=== PATIENT | female | born 1970 | race Hispanic/Latino ===

== ENCOUNTER 2022-08-22 15:23 | Emergency (ER) | payer OTHER, MEDICAID, SELFPAY ==
[2022-08-22 15:36] VITALS: BP 147/86; PULSE 94; RESP 16; TEMP 36.9; O2SAT 100; BMI 27.2
[2022-08-22 16:22] LABS: Influenza A - CEPHEID Flu A POSITIVE (NEGATIVE); Influenza B - CEPHEID Flu B NEGATIVE (NEGATIVE); Respiratory Syncytial Virus Negative (Negative)
[2022-08-22 16:24] LABS: COVID-19 CEPHEID 4-PLEX PCR Negative (Negative)
--- NOTE | 2022-08-22 16:58 | DI.RAD.S_ITS ---
PROCEDURE: XR CHEST 1V INDICATIONS: shortness of breath, flu+ TECHNIQUE: One view of the chest was acquired. COMPARISON: None. FINDINGS: Surgical changes and devices: None. Lungs and pleura: Trace can be seen involving both lower lungs, left worse than right. No pleural effusions or pneumothorax. Mediastinum: Mediastinal contours appear normal. Heart size is normal. Bones and chest wall: No suspicious bony lesions. Overlying soft tissues appear unremarkable. IMPRESSION: These imaging findings are compatible with the given clinical history a viral infection. No superimposed consolidative infiltrates are seen. Dictated by: Scot Shrestha M.D. on 08/22/2022 at 16:39 Approved by: Scot Shrestha M.D. on 08/22/2022 at 16:39
--- NOTE | 2022-08-22 17:05 | ED_ITS ---
HPI - URI/Sore Throat <YELITZA Robledo - Last Filed: 08/22/22 20:14> General Chief Complaint: Upper Respiratory Symptoms Stated Complaint: Sore Throat/Fever/Aches/Headache Time Seen by Provider: 08/22/22 16:22 Mode of arrival: Family Vehicle History of Present Illness HPI Narrative: This is a 51-year-old female presents to the emergency department complaining of epigastric pain, sore throat, fever, body aches and headache. She is had the symptoms for the last 5 days, has been exposed to influenza A. Has not had vomiting but endorses having diarrhea. She complains of shortness of breath, fatigue, frequent cough. Related Data Previous Rx's Medication Instructions Recorded albuterol sulfate 90 mcg/actuation 1 puff inhalation QID PRN 08/22/22 aerosol inhaler shortness of breath or wheezing #8.5 grams amoxicillin 500 mg capsule 1,000 mg PO TID 5 days #28 caps 08/22/22 azithromycin 250 mg tablet 250 mg PO DAILY 4 days #4 tabs 08/22/22 inhalational spacing device (Space #1 ea 08/22/22 Chamber) omeprazole 10 mg capsule,delayed 10 mg PO DAILY #30 caps 08/22/22 release Allergies Allergy/AdvReac Type Severity Reaction Status Date / Time No Known Drug Allergies Allergy Verified 08/22/22 15:38 Review of Systems <YELITZA Robledo - Last Filed: 08/22/22 20:14> Review of Systems Narrative: Review of systems is negative for acute abnormalities unless otherwise noted in HPI Patient History <YELITZA Robledo - Last Filed: 08/22/22 20:14> Social History Smoking Status: Former smoker Smoking Status: Former smoker Substance Use Type: does not use Exam <YELITZA Robledo - Last Filed: 08/22/22 20:14> Narrative Exam Narrative: Reviewed vitals signs and nursing notes. General: cooperative, uncomfortable, in no acute distress, well groomed HEENT: symmetrical facial expressions, moist mucous membranes, congestion pres ent, without sinus tenderness, Cardiovascular: regular rate and rhythm, no peripheral edema, warm extremities Respiratory: normal effort, able to speak in complete sentences, without wheezing, stridor, or abnormal breath sounds. No retractions or tachypnea. Diminished breath sounds bilateral bases GI: abdomen soft, nontender to palpation, nondistended, without masses, rebound tenderness or exquisite tenderness with exam. MSK: moves all extremities, neurovascularly intact, no weakness, normal tone Skin: brisk capillary refill, without pallor or erythema Neuro: normal speech and cognition, A&O x3, ambulatory, clear speech Psych: mental status is grossly normal, congruent mood, normal affect, pleasant and cooperative Initial Vital Signs Initial Vital Signs: Vital Signs Temperature 98.4 F 08/22/22 15:36 Pulse Rate 94 H 08/22/22 15:36 Respiratory Rate 16 08/22/22 15:36 Blood Pressure 147/86 H 08/22/22 15:36 Pulse Oximetry 100 08/22/22 15:36 Oxygen Delivery Method 08/22/22 15:36 <Kenny Mcgovern MD - Last Filed: 08/23/22 07:04> Initial Vital Signs Initial Vital Signs: Vital Signs Temperature 98.4 F 08/22/22 15:36 Pulse Rate 94 H 08/22/22 15:36 Respiratory Rate 16 08/22/22 15:36 Blood Pressure 147/86 H 08/22/22 15:36 Pulse Oximetry 100 08/22/22 15:36 Oxygen Delivery Method 08/22/22 15:36 Course <YELITZA Robledo - Last Filed: 08/22/22 20:14> Orders Ordered: Discontinued Medications Acetaminophen (Acetaminophen 325 Mg Tablet) 650 mg PO NOW ONE Stop: 08/22/22 17:00 Last Admin: 08/22/22 17:17 Dose: 650 mg Documented By: ANDREY Amoxicillin (Amoxicillin 250 Mg Capsule) 1,000 mg PO NOW ONE Stop: 08/22/22 17:14 Last Admin: 08/22/22 17:17 Dose: 1,000 mg Documented By: BT Azithromycin (Azithromycin 250 Mg Tablet) 500 mg PO NOW ONE Stop: 08/22/22 17:14 Last Admin: 08/22/22 17:17 Dose: 500 mg Documented By: ANDREY Benzonatate (Benzonatate 100 Mg Capsule) 100 mg PO NOW ONE Stop: 08/22/22 17:14 Last Admin: 08/22/22 17:17 Dose: 100 mg Documented By: BT Dexamethasone (Dexamethasone 10 Mg/Ml Vial) 10 mg PO NOW ONE Stop: 08/22/22 17:00 Last Admin: 08/22/22 17:18 Dose: 10 mg Documented By: BT Guaifenesin (Guaifenesin Er 600 Mg Tab) 600 mg PO NOW ONE Stop: 08/22/22 17:14 Last Admin: 08/22/22 17:19 Dose: Not Given Documented By: BT Ketorolac Tromethamine (Ketorolac 30 Mg/Ml Vial) 15 mg IM NOW ONE Stop: 08/22/22 17:00 Last Admin: 08/22/22 17:18 Dose: 15 mg Documented By: BT Pantoprazole Sodium (Pantoprazole Dr 20 Mg Tablet) 20 mg PO NOW ONE Stop: 08/22/22 17:00 Last Admin: 08/22/22 17:18 Dose: 20 mg Documented By: BT Vital Signs Vital signs: Vital Signs - 8 hr 08/22/22 15:36 08/22/22 17:39 Temperature 98.4 F Pulse Rate 94 H 79 Respiratory Rate 16 18 Blood Pressure 147/86 H 143/84 H Pulse Oximetry 100 98 Oxygen Delivery Method Room Air Room Air <Kenny Mcgovern MD - Last Filed: 08/23/22 07:04> Orders Ordered: Discontinued Medications Acetaminophen (Acetaminophen 325 Mg Tablet) 650 mg PO NOW ONE Stop: 08/22/22 17:00 Last Admin: 08/22/22 17:17 Dose: 650 mg Documented By: ANDREY Amoxicillin (Amoxicillin 250 Mg Capsule) 1,000 mg PO NOW ONE Stop: 08/22/22 17:14 Last Admin: 08/22/22 17:17 Dose: 1,000 mg Documented By: BT Azithromycin (Azithromycin 250 Mg Tablet) 500 mg PO NOW ONE Stop: 08/22/22 17:14 Last Admin: 08/22/22 17:17 Dose: 500 mg Documented By: BT Benzonatate (Benzonatate 100 Mg Capsule) 100 mg PO NOW ONE Stop: 08/22/22 17:14 Last Admin: 08/22/22 17:17 Dose: 100 mg Documented By: ANDREY Dexamethasone (Dexamethasone 10 Mg/Ml Vial) 10 mg PO NOW ONE Stop: 08/22/22 17:00 Last Admin: 08/22/22 17:18 Dose: 10 mg Documented By: BT Guaifenesin (Guaifenesin Er 600 Mg Tab) 600 mg PO NOW ONE Stop: 08/22/22 17:14 Last Admin: 08/22/22 17:19 Dose: Not Given Documented By: BT Ketorolac Tromethamine (Ketorolac 30 Mg/Ml Vial) 15 mg IM NOW ONE Stop: 08/22/22 17:00 Last Admin: 08/22/22 17:18 Dose: 15 mg Documented By: BT Pantoprazole Sodium (Pantoprazole Dr 20 Mg Tablet) 20 mg PO NOW ONE Stop: 08/22/22 17:00 Last Admin: 08/22/22 17:18 Dose: 20 mg Documented By: BT Vital Signs Vital signs: Vital Signs - 8 hr 08/22/22 15:36 08/22/22 17:39 Temperature 98.4 F Pulse Rate 94 H 79 Respiratory Rate 16 18 Blood Pressure 147/86 H 143/84 H Pulse Oximetry 100 98 Oxygen Delivery Method Room Air Room Air MDM - URI/Sore Throat <Nataly Caceres [facility] - Last Filed: 08/22/22 20:14> Lab Data Labs: Lab Results 08/22/22 Range/Units 15:43 SARS-CoV-2 (PCR) Negative (Negative) Influenza A (RT-PCR) Flu a positive H (NEGATIVE) Influenza B (RT-PCR) Flu b negative (NEGATIVE) RSV (PCR) Negative (Negative) Imaging Data Chest x-ray: Radiologist's Impression: PROCEDURE:? XR CHEST 1V ? INDICATIONS:? shortness of breath, flu+ ? TECHNIQUE:? One view of the chest was acquired.? ? COMPARISON:? None. ? FINDINGS:? ? Surgical changes and devices:? None.? ? Lungs and pleura:? Trace can be seen involving both lower lungs, left worse than right.? No pleural effusions or pneumothorax.? ? Mediastinum:? Mediastinal contours appear normal.? Heart size is normal.? ? Bones and chest wall:? No suspicious bony lesions.? Overlying soft tissues appear unremarkable.? IMPRESSION:? ? These imaging findings are compatible with the given clinical history a viral infection. ? No superimposed consolidative infiltrates are seen. ? ? Dictated by: Scot Shrestha M.D. on 08/22/2022 at 16:39 ? ? Approved by: Abdelrahman FloresD. on 08/22/2022 at 16:39 ? MDM Narrative Medical decision making narrative: This is a 51-year-old female presents to the emergency department with her daughter for upper respiratory symptoms for the last 5 days, both her and her daughter tested positive for influenza A, no other viruses were positive on her respiratory panel today. She had crackles and diminished breath sounds to bilateral bases, a wet cough, and was concerning for pneumonia since she is had fever and chills recently. She was treated in the emergency department with dexamethasone, Tylenol, Tessalon Perles, Mucinex, and given azithromycin and amoxicillin for pneumonia. Patient's symptoms improved after above-stated therapies, she is nontoxic appearing, without hypoxia, tachypnea, wheezing, or worsening on exam. Recommend hydration, Tylenol and ibuprofen as needed for her symptoms, follow-up with PCP if not better after 24 hours, and return to the emergency department for any worsening. She denies chest pain, difficulty breathing, or recent vomiting. Patient is appropriate and amenable to discharge home. Vital signs are stable on repeat examination is unremarkable. Patient has been informed of results. Patient has been given strict return to ER precautions for any new or worsening symptoms. Patient understands to follow up closely with outpatient providers as instructed. Patient understands plan and agrees to discharge home. All questions and concerns answered at this time. <Kenny Mcgovern MD - Last Filed: 08/23/22 07:04> Lab Data Labs: Lab Results 08/22/22 Range/Units 15:43 SARS-CoV-2 (PCR) Negative (Negative) Influenza A (RT-PCR) Flu a positive H (NEGATIVE) Influenza B (RT-PCR) Flu b negative (NEGATIVE) RSV (PCR) Negative (Negative) Discharge Plan Departure Patient Disposition: Home Clinical Impression: Influenza A Pneumonia Qualifiers: Pneumonia type: due to unspecified organism Laterality: unspecified laterality Lung location: unspecified part of lung Qualified Code(s): J18.9 - Pneumonia, unspecified organism Instructions: Pneumonia-Adult, Influenza Activity Restrictions/Additional Instructions: *You have been diagnosed with influenza A and pneumonia. For your abdominal pain, please take omeprazole daily 1st thing food. Please take Zyrtec at night for congestion, ibuprofen 600 mg every 6 hours water for pain, Tylenol 650 mg with that. Okay to use Flonase nasal spray for congestion, Mucinex for cough. I hope everybody feels better soon. Please stay hydrated, drink plenty of water, and take the next few days off of work. *What to do: *Please continue to take your regular medications as directed. [ x] New medication prescriptions sent to your pharmacy: [ [facility]] [ ] New medication written as a paper prescription [ ] No new medications given *Please follow up with your primary care provider in 2-3 days, call for an appointment. Let them know you were seen in the Emergency Department and that we asked that you be seen for follow-up. We will electronically transmit a record of today's note if your PCP is in our system *If you do not have a primary care provider please contact [phone] to establish care with one of the [facility] primary care providers. *Return to Emergency Department if you should have any new, worsening, or concerning symptoms, such as [fever greater than 101F, chills, worsening pain, persistent vomiting or other bothersome symptoms]. Prescriptions: New azithromycin 250 mg tablet 250 mg PO DAILY 4 Days Qty: 4 0RF Rx Instructions: start on day 2 of therapy amoxicillin 500 mg capsule 1,000 mg PO TID 5 Days Qty: 28 0RF albuterol sulfate 90 mcg/actuation HFA aerosol inhaler 1 puff inhalation QID PRN (Reason: shortness of breath or wheezing) Qty: 8.5 0RF (DME) Space Chamber Spacer See Rx Instructions .Route Qty: 1 0RF Rx Instructions: As directed omeprazole 10 mg capsule,delayed release(DR/EC) 10 mg PO DAILY Qty: 30 0RF Referrals: Miscellaneous,[facility] [Primary Care Provider] - Stand Alone Forms: Work Release Note Visit Report Forms: Patient Portal/API <Kenny Mcgovern MD - Last Filed: 08/23/22 07:04> Cosign ED Attending Cosignature Attestation: I was immediately available in the department for consultation. ?This documentation has been reviewed and I agree with assessment and plan. Supervised by Kenny Mcgovern MD
[2022-08-22] MEDS: AMOXICILLIN 250 MG CAPSULE 1000 MG PO (17:17)
[2022-08-22] MEDS: ACETAMINOPHEN 325 MG TABLET 650 MG PO (17:17)
[2022-08-22] MEDS: BENZONATATE 100 MG CAPSULE PO (17:17)
[2022-08-22] MEDS: AZITHROMYCIN 250 MG TABLET 500 MG PO (17:17)
[2022-08-22] MEDS: PANTOPRAZOLE DR 20 MG TABLET PO (17:18)
[2022-08-22] MEDS: DEXAMETHASONE 10 MG/ML VIAL PO (17:18)
[2022-08-22] MEDS: KETOROLAC 30 MG/ML VIAL 15 MG IM (17:18)
[2022-08-22 17:39] VITALS: BP 143/84; PULSE 79; RESP 18; O2SAT 98
== END 2022-08-22 18:07 | disposition home or self-care (01) ==
PROVIDERS: Emergency Medicine; Emergency Provider Nurse Practitioner Critical Care Medicine
DX: J10.00 Influenza due to other identified influenza virus with unspecified type of pneumonia (principal); Z87.891 Personal history of nicotine dependence
CPT/HCPCS: 0241U; 71045; 96372; 99283; 99284; J1100; J1885